=== PATIENT | female | born 1970 | race Caucasian/White ===

== ENCOUNTER 2024-01-02 14:29 | Emergency (ER) | payer SELFPAY ==
[2024-01-02 14:45] VITALS: TEMP 97.6; BMI 24.5
[2024-01-02 15:57] LABS: BASO % 0.6 % (0-2.0); EOS % 1.1 % (0-4.5); HEMATOCRIT 44.9 % (32.4-45.2); HEMOGLOBIN 15.6 GM/dL (10.7-15.3); LYMPH % 21.1 % (8-40); MCH 28.9 pg (25.7-33.7); MCHC 34.8 g/dl (32.0-36.0); MEAN CELL VOLUME 83.2 fl (80-96); MEAN PLT VOLUME 8.7 fl (7.5-11.1); MONO % 5.2 % (3.8-10.2); PLATELET COUNT 269 10^3/uL (134-434); WHITE BLOOD COUNT 10.9 K/mm3 (4.0-10.0)
[2024-01-02 16:03] LABS: PH,URINE 6.5 (5.0-8.0); URINE APPEARANCE CLEAR; URINE BILIRUBIN NEGATIVE (NEGATIVE); URINE COLOR YELLOW; URINE GLUCOSE (UA) NEGATIVE (NEGATIVE); URINE KETONE NEGATIVE (NEGATIVE); URINE LEUK ESTERASE NEGATIVE (NEGATIVE); URINE NITRITE NEGATIVE (NEGATIVE); URINE PROTEIN NEGATIVE (NEGATIVE); URINE UROBILINOGEN 0.2 mg/dL (0.2-1.0)
[2024-01-02 16:51] LABS: CALCIUM 9.6 mg/dL (8.5-10.1)
[2024-01-02 16:52] LABS: MAGNESIUM 2.3 mg/dL (1.8-2.4)
[2024-01-02 16:55] LABS: CREATININE 0.8 mg/dL (0.55-1.3)
[2024-01-02 16:56] LABS: BILIRUBIN,TOTAL 0.5 mg/dL (0.2-1); TOT PROT 7.7 g/dl (6.4-8.2)
[2024-01-02 17:24] LABS: HIV INTERPRETATION NEGATIVE (NEGATIVE)
[2024-01-02] MEDS ORDERED: POTASSIUM CHLORIDE ORAL LIQUID 20 MEQ/15 ML ONE (17:25)
[2024-01-02] MEDS ORDERED: POTASSIUM CHLORIDE TABS 20 MEQ TABLET.ER (FP) PO ONE (17:25)
[2024-01-02] MEDS: POTASSIUM CHLORIDE ORAL LIQUID 20 MEQ/15 ML PO ONE (17:33)
[2024-01-02] MEDS: POTASSIUM CHLORIDE TABS 20 MEQ TABLET.ER (FP) PO ONE (17:33)
[2024-01-02 17:39] VITALS: BP 145/88; PULSE 70; RESP 20
== END 2024-01-02 18:21 | disposition home or self-care (01) ==
LOC: JER 14:29
DX: E87.6 Hypokalemia (principal); R42 Dizziness and giddiness; R00.2 Palpitations; R53.83 Other fatigue
CPT/HCPCS: 36415; 80053; 81003; 83735; 84443; 84484; 85025; 86803; 87086; 87389; 93005; 93010; 99284-25